=== PATIENT | female | born 1970 | race Caucasian/White ===

== ENCOUNTER 2017-07-25 20:37 | Emergency (ER) | payer OTHER ==
[~2017-07-25] VITALS: Ht 175.3 cm; Wt 108.9 kg
[~2017-07-25 20:37] MED LIST: ADDERALL 10 MG10 MG PO; AFRICAN MANGO; ALLEGRA30 MG; ARMOUR THYROID60 M1; CHLOR-TABLET4 MG; CIPRO500 MG PO; CLEOCIN HCL150 MG PO; FERRO-TIME325 MG; FISH OIL 1,001000 M2 PO; FLEXERIL PO; IBUPROFEN 800800 M1 PO; NORCO 5-325 TA1 EACH PO; PRILOSEC40 MG; PROAIR HFA8.5 GM INH; PROMETHAZINE D480 ML PO; PROZAC 10 MG CA10 M1; ROBAXIN 750 MG750 M1 PO; TESSALON PERLE100 MG PO; ZANTAC 150MG T150 MG PO
[2017-07-25] MEDS ORDERED: COZAAR 50 MG TA50 M2 (20:59)
[2017-07-25 21:48] LABS: INFLUENZA A ANTIGEN None Detected (None Detect); INFLUENZA B ANTIGEN None Detected (None Detect)
[2017-07-25] MEDS ORDERED: VENTOLIN HFA INH8 GM INH (22:06)
[2017-07-25] MEDS ORDERED: MEDROLDOSEPACK PO (22:06)
[2017-07-25] MEDS ORDERED: PROMETH-CODEIN 65 ML PO (22:06)
[2017-07-25 22:14] VITALS: BP 134/88
== END 2017-07-25 22:18 | disposition home or self-care (01) ==
LOC: M.ERS 20:37
PROVIDERS: Nurse Practitioner
DX: J40 Bronchitis, not specified as acute or chronic (principal); E03.9 Hypothyroidism, unspecified; F41.9 Anxiety disorder, unspecified; Z90.711 Acquired absence of uterus with remaining cervical stump; Z88.1 Allergy status to other antibiotic agents; Z88.0 Allergy status to penicillin; Z88.2 Allergy status to sulfonamides

== ENCOUNTER 2017-07-28 20:38 | Emergency (ER) | payer OTHER ==
[~2017-07-28] VITALS: Ht 175.3 cm; Wt 108.9 kg
[~2017-07-28 20:38] MED LIST changes: +COZAAR 50 MG TA50 M2; +MEDROLDOSEPACK PO; +PROMETH-CODEIN 65 ML PO; +VENTOLIN HFA INH8 GM INH
[2017-07-28] MEDS ORDERED: CHERATUSSIN AC118 ML PO (22:05)
[2017-07-28] MEDS ORDERED: LEVAQUIN 500 M500 M2 PO (22:06)
[2017-07-28] MEDS ORDERED: TESSALON PERLE100 MG PO (22:07)
[2017-07-28 22:18] VITALS: BP 174/90
== END 2017-07-28 22:20 | disposition home or self-care (01) ==
LOC: M.ERS 20:38
DX: J01.90 Acute sinusitis, unspecified (principal); F41.9 Anxiety disorder, unspecified; E03.9 Hypothyroidism, unspecified; Z88.2 Allergy status to sulfonamides; Z88.1 Allergy status to other antibiotic agents

== ENCOUNTER 2017-12-29 06:26 | Emergency (ER) | payer OTHER ==
[~2017-12-29] VITALS: Ht 175.3 cm; Wt 113.4 kg
[~2017-12-29 06:26] MED LIST changes: +CHERATUSSIN AC118 ML PO; +LEVAQUIN 500 M500 M2 PO
[2017-12-29 06:47] LABS: URINE BILIRUBIN NEGATIVE (Negative); URINE BLOOD TRACE (Negative); URINE CLARITY CLEAR; URINE COLOR YELLOW; URINE GLUCOSE-RANDOM NEGATIVE (Negative); URINE KETONES NEGATIVE (Negative); URINE LEUKOCYTES-REFLEX NEGATIVE (Negative); URINE NITRITE-REFLEX NEGATIVE (Negative); URINE PROTEIN NEGATIVE (Negative); URINE SPECIFIC GRAVITY 1.025 (1.005-1.030); URINE UROBILINOGEN 0.2 E.U./dl (0.2-1.0)
[2017-12-29 07:06] LABS: ABSOLUTE LYMPHOCYTES 1.7 thou/uL (0.8-5.3); ABSOLUTE MONOCYTES 0.4 thou/uL (0.0-1.2); ABSOLUTE NEUTROPHILS 3.6 thou/uL (1.6-8.1); BASOPHILS 0.6 %; EOSINOPHILS 0.7 %; HEMATOCRIT 36.2 % (37.0-47.0); LYMPHOCYTES 29.2 %; MCH 28.2 pg (26.0-34.0); MCHC 33.2 g/dL (28.0-37.0); MCV 84.8 fL (80.0-100.0); MONOCYTES 7.3 %; NUCLEATED RBCS 0 /100WBC; PLATELET COUNT* 255 thou/uL (150-400); POLYS 62.2 %; RBC 4.27 mil/uL (4.20-5.00); RDW-CV 12.7 % (10.5-14.5); WBC 5.8 thou/uL (4.0-11.0)
[2017-12-29 07:32] LABS: CALCIUM 8.1 mg/dL (8.5-10.1); CREATININE 0.7 mg/dL (0.6-1.3); POTASSIUM 3.6 mmol/L (3.5-5.1)
[2017-12-29 07:36] LABS: ALBUMIN 3.1 g/dL (3.4-5.0); TOTAL BILIRUBIN 0.2 mg/dL (<0.1-1.0)
[2017-12-29] MEDS ORDERED: NORCO 5-325 TA1 EACH PO (09:23)
[2017-12-29] MEDS ORDERED: TORADOL 10 MG T10 MG PO (09:23)
[2017-12-29] MEDS ORDERED: BENTYL 20 MG TA20 M1 PO (09:23)
[2017-12-29 09:50] VITALS: BP 122/62
== END 2017-12-29 09:51 | disposition home or self-care (01) ==
LOC: M.ERS 06:26
PROVIDERS: Emergency Medicine
DX: R10.11 Right upper quadrant pain (principal); E03.9 Hypothyroidism, unspecified; F41.9 Anxiety disorder, unspecified; Z90.710 Acquired absence of both cervix and uterus; Z88.1 Allergy status to other antibiotic agents; Z88.2 Allergy status to sulfonamides